=== PATIENT | female | born 1980 | race Two or more races ===

== ENCOUNTER → 2022-06-05 | Outpatient (CLI) | payer MEDICARE ==
[~2022-06-05] MED LIST: ACET-868 PO; ALBU2.5V38 IH; ALPR0.5T PO; ASPI-1420 PO; CALC-494 PO; CHOL100043 PO; DIPH25CA51 PO; DOCU-141 PO; FOLI0.4T6 PO; GABA-532 PO; GUAI5SYR PO; HYDR4TAB57 PO; IBUP-1953 PO; ISOS5TAB3 PO; MELA3TAB41 PO; MELO15TA13 PO; METO25TA20 PO; MORP15TA PO; MULT-447 PO; NITR0.4T48 SL; OMEG10006 PO; POLY15DR40 EACHEYE; SERT100T PO; ZOLP10TA2 PO
== END | disposition home or self-care (01) ==
LOC: LAB 11:25
PROVIDERS: ATTEND Surgery
DX: Z01.812 Encounter for preprocedural laboratory examination (principal); Z20.822 Contact with and (suspected) exposure to COVID-19
CPT/HCPCS: U0003; C9803

== ENCOUNTER 2022-06-09 05:30 | Inpatient (IN) | payer MEDICARE, OTHER ==
[2022-06-09] VITALS (9 sets, daily range): BP systolic 101–125; BP diastolic 52–83
[~2022-06-09 05:30] MED LIST changes: -ACET-868 PO; -ALBU2.5V38 IH; -ALPR0.5T PO; +ANESTHESIA TRAY IN PYXIS 1 EA TRAY MC ONE; -ASPI-1420 PO; -CALC-494 PO; -CHOL100043 PO; -DIPH25CA51 PO; -DOCU-141 PO; -FOLI0.4T6 PO; -GABA-532 PO; -GUAI5SYR PO; -HYDR4TAB57 PO; -IBUP-1953 PO; -ISOS5TAB3 PO; -MELA3TAB41 PO; -MELO15TA13 PO; -METO25TA20 PO; -MORP15TA PO; -MULT-447 PO; -NITR0.4T48 SL; -OMEG10006 PO; -POLY15DR40 EACHEYE; -SERT100T PO; -ZOLP10TA2 PO
--- NOTE | 2022-06-09 06:13 | NUR ---
RN NOTE PATIENT REPORTED RCW PORTACATH IV ACCESS FOR EVERYTHING, PATIENT DOES NOT WANT IV INSERTION; CHARGE AWARE
--- NOTE | 2022-06-09 06:45 | NUR ---
RN NOTE PT TRANSFERRED TO OR.
[2022-06-09] MEDS ORDERED: FENTANYL PF 250MCG/5ML AMPUL ONE (06:57)
[2022-06-09] MEDS ORDERED: MIDAZOLAM HCL 2 MG/2ML VIAL ONE (06:58)
[2022-06-09] MEDS ORDERED: HYDROMORPHONE INJ 2 MG/ML DISP.SYRIN ONE ×2 (06:58→12:56)
[2022-06-09] MEDS ORDERED: FAMOTIDINE/PF INJ 20 MG/2 ML VIAL IV ONE (06:58)
[2022-06-09] MEDS ORDERED: ROCURONIUM BROMIDE 50 MG/5 ML ONE (06:59)
[2022-06-09] MEDS ORDERED: DEXAMETHASONE SOD PHOSPHATE 10 MG/ML VIAL ONE (07:20)
[2022-06-09] MEDS ORDERED: SEVOFLURANE 250 ML BOTTLE IH ONE (07:29)
[2022-06-09] MEDS ORDERED: BUPIVACAINE MPF 0.5% W/EPI INJ 30 ML VIAL ONE (07:30)
[2022-06-09] MEDS ORDERED: LIDOCAINE 1% INJ 50 ML MDV IJ ONE (07:30)
[2022-06-09] MEDS ORDERED: BUPIVACAINE MPF W/EPI 0.25% 30 ML VIAL ONE (07:31)
[2022-06-09] MEDS ORDERED: LIDOCAINE HCL/MPF 1% 30 ML VIAL IJ ONE (07:31)
[2022-06-09] MEDS ORDERED: HYDROMORPHONE INJ 2 MG/ML DISP.SYRIN IV ONE (10:00)
[2022-06-09] MEDS ORDERED: CELLULOSE,OXIDIZED 1 EA PACK MC ONE ×2 (10:00→10:01)
[2022-06-09] MEDS ORDERED: HYDROMORPHONE HCL 2 MG TABLET PO PRN (12:30)
[2022-06-09] MEDS ORDERED: ACETAMINOPHEN ES 500 MG TABLET PO PRN (12:30)
[2022-06-09] MEDS ORDERED: HYDROMORPHONE INJ 2 MG/ML DISP.SYRIN IV PRN (12:30)
[2022-06-09] MEDS ORDERED: FENTANYL PF 100MCG/2ML AMPUL IV PRN (12:30)
[2022-06-09] MEDS ORDERED: HYDROMORPHONE 1 MG/1 ML DISP.SYRIN ONE (12:46)
--- NOTE | 2022-06-09 13:30 | NUR ---
RN Receiving Report PT AOx4, received report from DOT NET DEVELOPER. Pt able to express her own concerns. states she is comfortable other than the pain from surgery. Will monitor throughout shift and administered medications as prescribed. All safety precautions taken, bed at lowest position, call light and table within reach.
[2022-06-09] MEDS: HEPARIN SODIUM, PORCINE 5000 UNITS/1 ML VIAL SQ SCH ×2 (14:15→20:47)
--- NOTE | 2022-06-09 14:30 | NUR ---
Non Admin Heparin, will endorsed to admin next dose. Patient transferred after scheduled dose.
[2022-06-09 15:13] LABS: HEMATOCRIT 32 % (33-45); HEMOGLOBIN 10.5 g/dL (11.5-14.8); LYMPHOCYTES # (AUTO) 0.3 K/uL (0.8-4.8); LYMPHOCYTES % (AUTO) 1.3 % (20.0-44.0); MEAN CORPUSCULAR HGB CONC 33 g/dl (31.0-36.0); MEAN CORPUSCULAR VOLUME 75 fL (82-100); MONOCYTES # (AUTO) 0.3 K/uL (0.1-1.30); MONOCYTES % (AUTO) 1.5 % (2.0-12.0); NEUTROPHILS % (AUTO) 97.2 % (43.0-81.0); PLATELET COUNT (AUTO) 232 K/uL (150-450); RED BLOOD CELL COUNT(AUTO) 4.25 MIL/uL (4.0-5.2); WHITE BLOOD COUNT (AUTO) 21.6 K/uL (4.3-11.0)
[2022-06-09] MEDS ORDERED: IBUP-1953 PO (15:20)
[2022-06-09] MEDS ORDERED: SERT100T PO (15:20)
[2022-06-09] MEDS ORDERED: ACET-868 PO (15:20)
[2022-06-09] MEDS ORDERED: FOLI0.4T6 PO (15:20)
[2022-06-09] MEDS ORDERED: CALC-494 PO (15:20)
[2022-06-09] MEDS ORDERED: ZOLP10TA2 PO (15:20)
[2022-06-09] MEDS ORDERED: POLY15DR40 EACHEYE (15:20)
[2022-06-09] MEDS ORDERED: ALPR0.5T PO (15:20)
[2022-06-09] MEDS ORDERED: ASPI-1420 PO (15:20)
[2022-06-09] MEDS ORDERED: MULT-447 PO (15:20)
[2022-06-09] MEDS ORDERED: GUAI5SYR PO (15:20)
[2022-06-09] MEDS ORDERED: OMEG10006 PO (15:20)
[2022-06-09] MEDS ORDERED: MELO15TA13 PO (15:20)
[2022-06-09] MEDS ORDERED: DIPH25CA51 PO (15:20)
[2022-06-09] MEDS ORDERED: CHOL100043 PO (15:20)
[2022-06-09] MEDS ORDERED: MELA3TAB41 PO (15:20)
[2022-06-09] MEDS ORDERED: ISOS5TAB3 PO (15:20)
[2022-06-09] MEDS ORDERED: DOCU-141 PO (15:20)
[2022-06-09] MEDS ORDERED: HYDR4TAB57 PO (15:20)
[2022-06-09] MEDS ORDERED: MORP15TA PO (15:20)
[2022-06-09] MEDS ORDERED: NITR0.4T48 SL (15:20)
[2022-06-09] MEDS ORDERED: ALBU2.5V38 IH (15:20)
[2022-06-09] MEDS ORDERED: GABA-532 PO (15:20)
[2022-06-09] MEDS ORDERED: METO25TA20 PO (15:20)
[2022-06-09 15:55] LABS: BAND % (MANUAL) 2 % (0.0-5.0); LYMPHOCYTES % (MANUAL) 2 % (16-48); MONOCYTES % (MANUAL) 1 % (0-11.0); NEUTROPHILS % (MANUAL) 95 (42-76)
[2022-06-09] MEDS: METOCLOPRAMIDE HCL 10 MG/2 ML VIAL IV SCH (17:31)
--- NOTE | 2022-06-09 18:40 | NUR ---
RN Closing Notes PT AOx4, monitored throughout shift. VSS, per PACU nurse dilaudid was administered before transfer , pt upset it is scheduled every 4hrs, not every 3 hrs. All safety precautions taken during shift, call light and table within reach, bed at lowest position. PortAcath, patent, flused before, between and after medication administration, per pt's request, flush twice after dilaudid
--- NOTE | 2022-06-09 19:31 | NUR ---
MS RN OPENING NOTE RECEIVED PATIENT IN BED, A/OX4. NO S/S OF APPARENT DISTRESS IN ROOM AIR. C/O 9/ PAIN AT THIS TIME-- WILL MEDICATE. NO IV FLUIDS RUNNING AT THIS TIME AND NO IV ACCESS-- PER REPORT PATIENT REFUSES IV AND GETS MEDICATION IN HER HEATH CATH. HEATH CATH IN PLACE. ELADIO DRAIN DRAINING SEROSANGUINEOUS DRAINAGE. SAFETY IN PLACE. WILL CONTINUE WITH PLAN OF CARE FOR PATIENT.
[2022-06-09] MEDS: HYDROMORPHONE INJ 2 MG/ML DISP.SYRIN IV PRN (20:48)
[2022-06-09] MEDS: diphenhydrAMINE HCL 50 MG/ML VIAL IV PRN (20:48)
[2022-06-10] MEDS: HYDROMORPHONE INJ 2 MG/ML DISP.SYRIN IV PRN ×8 (00:17→21:30)
[2022-06-10] MEDS: METOCLOPRAMIDE HCL 10 MG/2 ML VIAL IV SCH ×4 (00:18→18:22)
[2022-06-10] MEDS: diphenhydrAMINE HCL 50 MG/ML VIAL IV PRN ×4 (03:19→21:30)
[2022-06-10] MEDS: HEPARIN SODIUM, PORCINE 5000 UNITS/1 ML VIAL SQ SCH ×3 (04:58→21:36)
--- NOTE | 2022-06-10 07:28 | NUR ---
MS RN CLOSING NOTE REPORT GIVEN TO KAMARI FOR CONTINUITY OF CARE. NEEDS ATTENDED.
--- NOTE | 2022-06-10 07:30 | NUR ---
RN Opening Notes PT AOx4, able to express her own concerns. Patient concerned about next scheduled dose, states she has an alarm Q3 hours and will remind staff for next scheduled dose. Reviewed plan of care with patient, will continue to monitor. All safety precautions taken, bed at lowest position, call light and table within reach.
[2022-06-10 08:00] VITALS: BP 123/64
[2022-06-10] MEDS: PANTOPRAZOLE 40 MG/PACK PACK PO SCH (08:12)
[2022-06-10] MEDS ORDERED: ACETAMINOPHEN 325 MG TABLET PO PRN (10:00)
[2022-06-10] MEDS ORDERED: ONDANSETRON HCL/PF 4 MG/2 ML VIAL IVP PRN (10:00)
[2022-06-10 10:18] LABS: BASOPHILS % (AUTO) 0.2 % (0.0-2.0); EOSINOPHILS % (AUTO) 0.1 % (0.0-6.0); HEMATOCRIT 31 % (33-45); HEMOGLOBIN 10.1 g/dL (11.5-14.8); LYMPHOCYTES # (AUTO) 1.5 K/uL (0.8-4.8); LYMPHOCYTES % (AUTO) 12.6 % (20.0-44.0); MEAN CORPUSCULAR HGB CONC 33 g/dl (31.0-36.0); MEAN CORPUSCULAR VOLUME 75 fL (82-100); MONOCYTES # (AUTO) 0.8 K/uL (0.1-1.30); MONOCYTES % (AUTO) 6.4 % (2.0-12.0); NEUTROPHILS # (AUTO) 9.9 K/uL (1.8-8.9); NEUTROPHILS % (AUTO) 80.7 % (43.0-81.0); PLATELET COUNT (AUTO) 262 K/uL (150-450); RED BLOOD CELL COUNT(AUTO) 4.11 MIL/uL (4.0-5.2); WHITE BLOOD COUNT (AUTO) 12.3 K/uL (4.3-11.0)
[2022-06-10 10:21] LABS: CALCIUM, SERUM 7.9 mg/dL (8.5-10.1); CREATININE 0.8 mg/dL (0.6-1.3); POTASSIUM 4.1 mmol/L (3.5-5.1)
[2022-06-10 16:00] VITALS: BP 100/59
--- NOTE | 2022-06-10 18:45 | NUR ---
RN Closing Notes PT AOx4, monitored and administered medications as ordered by provider. Pt able to express her own concerns. No incidents throughout shift.Pt is very specific about administering pain meds. Pt aware of d/c plan and pending discharge. All safety precautions taken, call light and table within reach, bed at lowest position.
--- NOTE | 2022-06-10 19:47 | NUR ---
MS RN OPENING NOTE RECEIVED PATIENT IN BED, A/OX4. NO S/S OF APPARENT DISTRESS IN ROOM AIR. NO C/O PAIN AT THIS TIME. NO IV FLUIDS RUNNING AT THIS TIME AND NO IV ACCESS-- PER REPORT PATIENT REFUSES IV AND GETS MEDICATION IN HER HEATH CATH. HEATH CATH IN PLACE. ELADIO DRAIN DRAINING SEROSANGUINEOUS DRAINAGE. SAFETY IN PLACE. WILL CONTINUE WITH PLAN OF CARE FOR PATIENT.
[2022-06-10 20:00] VITALS: BP 114/59
[2022-06-11] MEDS: HYDROMORPHONE INJ 2 MG/ML DISP.SYRIN IV PRN ×5 (00:31→22:26)
[2022-06-11] MEDS: METOCLOPRAMIDE HCL 10 MG/2 ML VIAL IV SCH ×3 (00:31→18:10)
--- NOTE | 2022-06-11 07:30 | NUR ---
RN Opening notes PT AOx4, sleeping but easily aroused. Patine i wearing her CPAP. No signs of distress. Patient made aware of pending discharge plan to [facility] and agrees. Patient able to express her own concerns, shows no signs of distress. will continue to monitor throughout shift and administer medications as prescribed. All safety precautions taken, bed at lowest position, call light and table within reach.
[2022-06-11 08:00] VITALS: BP 97/64
[2022-06-11 08:26] LABS: BASOPHILS % (AUTO) 0.2 % (0.0-2.0); EOSINOPHILS % (AUTO) 1.8 % (0.0-6.0); HEMATOCRIT 29 % (33-45); HEMOGLOBIN 9.9 g/dL (11.5-14.8); LYMPHOCYTES # (AUTO) 2.6 K/uL (0.8-4.8); LYMPHOCYTES % (AUTO) 23.6 % (20.0-44.0); MEAN CORPUSCULAR HGB CONC 34 g/dl (31.0-36.0); MEAN CORPUSCULAR VOLUME 74 fL (82-100); MONOCYTES # (AUTO) 0.8 K/uL (0.1-1.30); MONOCYTES % (AUTO) 7.1 % (2.0-12.0); NEUTROPHILS # (AUTO) 7.4 K/uL (1.8-8.9); NEUTROPHILS % (AUTO) 67.3 % (43.0-81.0); PLATELET COUNT (AUTO) 239 K/uL (150-450); RED BLOOD CELL COUNT(AUTO) 3.91 MIL/uL (4.0-5.2)
[2022-06-11 09:42] LABS: CALCIUM, SERUM 8.1 mg/dL (8.5-10.1); CREATININE 0.8 mg/dL (0.6-1.3); MAGNESIUM 2.2 mg/dL (1.8-2.4); PHOSPHORUS 3.6 mg/dL (2.5-4.9); POTASSIUM 3.6 mmol/L (3.5-5.1)
[2022-06-11] MEDS: diphenhydrAMINE HCL 50 MG/ML VIAL IV PRN ×3 (09:42→22:26)
[2022-06-11] MEDS: PANTOPRAZOLE 40 MG/PACK PACK PO SCH (09:42)
[2022-06-11] MEDS ORDERED: HEPA50008 SQ (09:50)
[2022-06-11] MEDS ORDERED: POLYVINYL ALCOHOL 15 ML BOTTLE EACHEYE PRN (10:00)
[2022-06-11] MEDS ORDERED: HYDR4TAB4 PO (10:48)
[2022-06-11] MEDS: GABAPENTIN 300 MG CAPSULE PO SCH ×3 (13:00→20:41)
[2022-06-11] MEDS: HEPARIN SODIUM, PORCINE 5000 UNITS/1 ML VIAL SQ SCH ×2 (13:00→20:40)
[2022-06-11] MEDS ORDERED: HEPARIN SODIUM, PORCINE 5000 UNITS/1 ML VIAL SQ SCH (13:00)
[2022-06-11] MEDS: SERTRALINE HCL 50 MG TABLET PO SCH (15:38)
[2022-06-11] MEDS: MULTIVITAMINS,THERAGRAN 1 UDTAB TABLET PO SCH (15:38)
[2022-06-11 16:00] VITALS: BP 127/65
[2022-06-11] MEDS ORDERED: DOCUSATE SODIUM 100 MG CAPSULE PO SCH (17:00)
[2022-06-11] MEDS: ALPRAZOLAM 0.5 MG TABLET PO SCH (17:34)
[2022-06-11] MEDS: DOCUSATE SODIUM LIQ 100 MG/10 ML UDC PO SCH (17:53)
--- NOTE | 2022-06-11 19:30 | NUR ---
RN OPENING NOTES RECEIVED PT IN BED, AWAKE, COMPLAINING OF PAIN. AOx4, ABLE TO MAKE NEEDS KNOWN. ON RA AND TOLERATING WELL. NO SOB NOTED. NO S/SX OF RESPIRATORY DISTRESS NOTED. IV ACCESS RCW PORTACATH. SAFETY PRECAUTIONS IN PLACE: BED IN LOWEST, LOCKED POSITION, SIDERAILS UPx2, AND BRAKES ON. TABLE AND CALL LIGHT WITHIN REACH. WILL CONTINUE TO MONITOR.
--- NOTE | 2022-06-11 19:36 | NUR ---
RN NOTES ADMINISTERED DILAUDID FOR PAIN PER MD ORDER. VS WNL.
[2022-06-11 20:00] VITALS: BP 141/72
--- NOTE | 2022-06-11 22:26 | NUR ---
RN NOTES ADMINISTERED DILAUDID FOR PAIN PER MD ORDER. VS WNL.
--- NOTE | 2022-06-11 22:38 | NUR ---
PADILLA NOTES RECEIVED LAB RESULT OF PTT FOR 117.6. WILL HOLD HEPARIN DRIP FOR 1 HOUR. Addendum: 06/12/22 at 0130 by AYDEN DAVALOS RN WRONG PATIENT. PLEASE DISREGARD.
[2022-06-12] MEDS: HYDROMORPHONE INJ 2 MG/ML DISP.SYRIN IV PRN ×3 (01:24→07:38)
--- NOTE | 2022-06-12 01:24 | NUR ---
RN NOTES ADMINISTERED DILAUDID FOR PAIN PER MD ORDER. VS WNL.
[2022-06-12] MEDS: diphenhydrAMINE HCL 50 MG/ML VIAL IV PRN ×2 (04:24→09:48)
--- NOTE | 2022-06-12 04:24 | NUR ---
RN NOTES ADMINISTERED DILAUDID PER MD ORDER FOR PAIN. VS WNL.
[2022-06-12] MEDS: HEPARIN SODIUM, PORCINE 5000 UNITS/1 ML VIAL SQ SCH (04:25)
[2022-06-12] MEDS: METOCLOPRAMIDE HCL 10 MG/2 ML VIAL IV SCH ×2 (05:58)
--- NOTE | 2022-06-12 06:38 | NUR ---
RN CLOSING NOTES PT IN BED, ASLEEP, AWAKENS TO VERBAL STIMULI. AOx4, ABLE TO MAKE NEEDS KNOWN. ON RA AND TOLERATING WELL. NO SOB NOTED. NO S/SX OF RESPIRATORY DISTRESS NOTED. IV ACCESS RCW PORTACATH. ALL ORDERS CARRIED OUT. ALL NEEDS MET. PT KEPT CLEAN AND DRY. TREATED PAIN THROUGHOUT SHIFT. SAFETY PRECAUTIONS IN PLACE: BED IN LOWEST, LOCKED POSITION, SIDERAILS UPx2, AND BRAKES ON. TABLE AND CALL LIGHT WITHIN REACH. WILL ENDORSE TO ONCOMING SHIFT FOR MOE.
--- NOTE | 2022-06-12 07:38 | NUR ---
RN OPENING NOTES RECEIVED PATIENT IN BED AWAKE, A/O X4, VERBALLY RESPONSIVE. NO SIGNS OF ACUTE DISTRESS NOTED. ON ROOM AIR, TOLERATING WELL, NO SOB NOTED. NOTED WITH PORT-A-CATH ON RIGHT CHEST WALL. WITH C/O PAIN ON ABDOMINAL AREA. DILAUDID 2MG IVP GIVEN ORDERED. SAFETY MEASURE IN PLACE. BED IN LOWEST AND LOCKED POSITION, SIDE RAILS UP X2, CALL LIGHT PLACED WITHIN EASY REACH. WILL CONTINUE TO MONITOR PATIENT.
[2022-06-12 08:00] VITALS: BP 110/65
[2022-06-12] MEDS: ALPRAZOLAM 0.5 MG TABLET PO SCH (08:37)
[2022-06-12] MEDS: MULTIVITAMINS,THERAGRAN 1 UDTAB TABLET PO SCH (08:37)
[2022-06-12] MEDS: PANTOPRAZOLE 40 MG/PACK PACK PO SCH (08:37)
[2022-06-12] MEDS: SERTRALINE HCL 50 MG TABLET PO SCH (08:37)
[2022-06-12] MEDS: GABAPENTIN 300 MG CAPSULE PO SCH (08:37)
[2022-06-12] MEDS: DOCUSATE SODIUM LIQ 100 MG/10 ML UDC PO SCH (08:37)
[2022-06-12] MEDS ORDERED: FOLIC ACID 1 MG TABLET PO SCH (09:00)
[2022-06-12] MEDS ORDERED: CHOLECALCIFEROL 1,000 UNIT TABLET (VIT D3) PO SCH (09:00)
[2022-06-12] MEDS ORDERED: ASPIRIN EC 81 MG TABLET.DR PO SCH (09:00)
--- NOTE | 2022-06-12 09:45 | NUR ---
RN NOTES [facility] ARE ALREADY HERE TO [facility]TERPRISE SOFTWARE ENGINEER PATIENT. PATIENT REQUESTING TO GET IVP DILAUDID AND BENADRYL PRIOR DISCHARGE. GARFIELD OBRIEN DNP MADE AWARE. RECEIVED ORDER, CARRIED OUT.
[2022-06-12] MEDS ORDERED: HYDROMORPHONE INJ 2 MG/ML DISP.SYRIN IV STA (09:53)
--- NOTE | 2022-06-12 10:10 | NUR ---
ASSISTANT PROFESSOR OF SPANISH NOTES PATIENT DISCHARGED TO [facility] IN STABLE CONDITION. PATIENT REMAINS AWAKE, A/O X4, ABLE TO MAKE NEEDS KNOWN. BENADRYL 50 MG AND DILAUDID 2MG IVP GIVEN PRIOR TO DISCHARGE PER PATIENTS REQUEST WITH MD'S ORDER. PORT-A-CATH ON RIGHT CHEST WALL INTACT. REPORT GIVEN TO PADILLA YE FROM [facility]. PRESCRIPTION AND EXITCARE FOLDER GIVEN TO [facility]. ALL BELONGINGS ACCOUNTED FOR. PATIENT LEFT UNIT @1005 PICKED UP VIA GURNEY BY [facility]. CN AWARE OF DISCHARGE.
== END 2022-06-12 10:10 | DRG 620 ==
LOC: DS 05:30 → MED 05:31
PROVIDERS: ADMIT Nurse Practitioner Acute Care; ATTEND Nurse Practitioner Acute Care
PROC: 0DB64Z3 Excision of Stomach, Percutaneous Endoscopic Approach, Vertical (ICD-10-PCS; principal; 2022-06-09)
PROC: 0FB04ZX Excision of Liver, Percutaneous Endoscopic Approach, Diagnostic (ICD-10-PCS; 2022-06-09)
PROC: 0BQT4ZZ Repair Diaphragm, Percutaneous Endoscopic Approach (ICD-10-PCS; 2022-06-09)
DX: E66.01 Morbid (severe) obesity due to excess calories (principal); R65.10 Systemic inflammatory response syndrome (SIRS) of non-infectious origin without acute organ dysfunction; D57.1 Sickle-cell disease without crisis; K44.9 Diaphragmatic hernia without obstruction or gangrene; R16.1 Splenomegaly, not elsewhere classified; K76.0 Fatty (change of) liver, not elsewhere classified; F32.A Depression, unspecified; Z79.82 Long term (current) use of aspirin; Z79.51 Long term (current) use of inhaled steroids; Z79.899 Other long term (current) drug therapy; G89.18 Other acute postprocedural pain; I10 Essential (primary) hypertension
CPT/HCPCS: 36415; 74150-TC; 80048-TC; 83735-TC; 84100-TC; 84703-TC; 85025-TC; 86850-TC; 87081-TC; A4217; G0378; J0690; J1100; J1170; J1200; J1644; J2250; J2704; J2765; J3010; J3490; J7030; J7040